=== PATIENT | female | born 1945 | race Hispanic/Latino ===

== ENCOUNTER → 2021-11-10 | Emergency (ER) | payer MEDICARE ==
[~2021-11-10] VITALS: Ht 165.1 cm; Wt 79.4 kg
[~2021-11-10] MED LIST: ONDANSETRON HCL 4 MG ORAL DISINTEGRATING TAB PO ONE
[2021-11-10 17:15] LABS: CLARITY,URINE HAZY (CLEAR); COLOR,URINE YELLOW (YELLOW); KETONES,URINE NEGATIVE (NEGATIVE); LEUKOCYTE ESTERASE ,URINE MODERATE (NEGATIVE); NITRITE,URINE POSITIVE (NEGATIVE); PROTEIN,URINE DIPSTICK NEGATIVE (NEGATIVE); URINE UROBILINOGEN 0.2 mg/dL (0.2 - 1)
[2021-11-10 17:22] LABS: BACTERIA,URINE MANY /HPF; EPITHELIAL CELLS,URINE FEW /LPF
== END | disposition home or self-care (01) ==
LOC: ER 15:08
DX: R30.0 Dysuria (principal); N81.10 Cystocele, unspecified
CPT/HCPCS: 81001; 99281